=== PATIENT | male | born 1995 | race Caucasian/White ===

== ENCOUNTER 2017-12-16 22:09 | Inpatient (IN) | payer OTHER ==
[~2017-12-16] VITALS: Ht 175.3 cm; Wt 140.6 kg
[~2017-12-16 22:09] MED LIST: EXCEDRIN MIGRAI1 TAB PO; ZYPREXA2.5 M1 PO
--- NOTE | 2017-12-16 22:22 | ED PSYCHIATRIC COMPLAINT ---
See Addendum History of Present Illness General Chief Complaint: Psychiatric Related Complaint Stated Complaint: "I'M HOMELESS AND I FEEL LIKE HARMING MYSELF" +SI Source: patient, old records Exam Limitations: no limitations Vital Signs & Intake/Output Vital Signs & Intake/Output Vital Signs Date Time Temp Pulse Resp B/P B/P Pulse O2 O2 Flow FiO2 Mean Ox Delivery Rate 12/17 0841 97.1 67 16 129/77 96 12/17 0450 98.1 96 18 132/76 98 Room Air 12/17 0315 98.2 92 16 136/78 97 Room Air 12/16 2211 97.9 108 20 149/86 97 Room Air ED Intake and Output 12/17 0000 12/16 1200 Intake Total 0 Output Total Balance 0 Intake, Oral 0 Patient 310 lb Weight Weight Reported by Patient Measurement Method Reconcile Medications Acetaminophen/Aspirin/Caffei (Excedrin Migraine 250 MG-250 MG-65 MG) 1 TAB TAB 1 TAB PO PRN MIGRAINES (Reported) Olanzapine (Zyprexa) 2.5 MG TABLET 1 TAB PO QPM MENTAL HEALTH (Reported) Triage Note: PT HERE WITH C/O THOUGHTS OF SELF HARM WITH A PLAN. PT REPORTS BEING RELEASED FROM REHAB AND GOING HOME TO FIND OUT THAT HE IS HOMELESS. PT REPORTS FEELING HOPLESS. PT REPORTS HX OF DRINKING ALCOHOL AND SMOKING MARIJUANA. Triage Nurses Notes Reviewed? yes Onset: Gradual Duration: week(s):, constant, getting worse Timing: recent history Severity: moderate, severe Severity Numbers: 10 Associated Symptoms: suicidal ideation HPI: 22 year old male history of anxiety depression previous suicide attempts presents to ER for evaluation stating he feels hopeless worsening depression and thoughts of wanting to harm himself by cutting his wrists. Patient states that he's been feeling worse over the past few weeks. He recently came back here from [place]. [place] and has been on current regimen of medications for the past month however states it is not helping. He does report marijuana and alcohol use. No alcohol today. He denies any other drug use. No HI (Jim FLOOD,Cricket) Allergies Coded Allergies: cefazolin (RASH 12/17/17) (Kingston Oneal DO) Past History Travel History Traveled to [place] past 21 day No Medical History Any Pertinent Medical History? 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 FATHER FH: diabetes mellitus Relation not specified for: FHx: skin cancer Hx Contributory? No (Cricket Cruz) Review of Systems Review of Systems Constitutional: Reports: see HPI. Comments Review of systems: See HPI, All other systems negative. Constitutional, no chills no fever HEENT: no sore throat no congestion Cardiovascular: No chest pain Skin: no rashes, no change in skin Respiratory: No dyspnea no cough GI: No nausea no vomiting, Muscle skeletal: No joint pain, no back pain Neurologic: , no headache Psych: stress depression,. Heme/endocrine: No bruising (Cricket Cruz) Physical Exam Physical Exam General Appearance: well developed/nourished, alert, awake Neurological/Psychiatric: awake Comments: Well-developed well-nourished person in no acute distress HEENT: Normal EENT exam; PERRL, EOMI, HEAD is atraumatic. moist mucous membranes. Neck: Supple, normal range of motion Back: Full range of motion Cardiovascular: Regular rate and rhythms no murmur Respiratory: No respiratory distress. Patient speaking in full complete sentences. Breath sounds clear to auscultation bilaterally: NO W/R/R Extremity: No edema, full range of motion of extremities Neuro: Alert oriented x3, motor sensory normal, cranial nerves II through XII grossly intact. There were no obvious focal neurologic abnormalities. Skin: No appreciable rash on exposed skin, skin is warm and dry. Psych: Mood and affect is normal, memory and judgment is normal. SAD PERSONS SAD PERSONS Response Value Male Sex? yes 1 Depression/Hopelessness? yes 2 Previous Attempts/Psych Care yes 1 Excessive Ethanol/Drug Use? yes 1 Rational Thinking Loss? yes 2 Single//? yes 1 Organized/Serious Attempt yes 2 Stated Future Intent? yes 2 Total 12 SAD PERSONS Done? yes (Jim FLOOD,Cricket) Progress Differential Diagnosis: electrolyte abnormality, DEPRESSION, ANXIETY Plan of Care: Orders Procedure Date/time Status Regular Diet 12/17 L Active Regular Diet 12/17 B Complete ED Holding Orders 12/17 1100 Active Admit to inpatient 12/17 1100 Active Code Status 12/17 1100 Active Continuous Observation Monitor 12/16 2214 Active URINE DRUG SCREEN FOR ER ONLY 12/16 2214 Complete ETHANOL 12/16 2214 Complete COMPREHENSIVE METABOLIC PANEL 12/16 2214 Complete CBC WITHOUT DIFFERENTIAL 12/16 2214 Complete ED CRISIS PSYCH CONSULT 12/16 2214 Active Current Medications Sig/Josiah Start time Last Medication Dose Stop Time Status Admin Aripiprazole 10 MG DAILY 12/17 0900 UNVr 12/17 (Abilify) 0920 Buspirone HCl 15 MG DAILY 12/17 0900 UNVr 12/17 (Buspar) 0920 Hydroxyzine HCl 25 MG DAILY 12/17 0900 UNVr 12/17 (Atarax) 0920 Sertraline HCl 100 MG DAILY 12/17 0900 UNVr 12/17 (Zoloft) 0920 Laboratory Tests 12/17/17 0612: Urine Opiates Screen < 100, Methadone Screen < 40, Barbiturate Screen < 60, Ur Phencyclidine Scrn < 6.00, Amphetamines Screen < 100, U Benzodiazepines Scrn < 85, Urine Cocaine Screen < 50, Urine Cannabis Screen > 80.00 H 12/16/17 2242: Anion Gap 18 H, Estimated GFR > 60, BUN/Creatinine Ratio 12.2, Glucose 97, Calcium 9.9, Total Bilirubin 0.6, AST 28, ALT 62, Alkaline Phosphatase 48, Total Protein 7.7, Albumin 5.0, Globulin 2.7, Albumin/Globulin Ratio 1.9, CBC w Diff NO MAN DIFF REQ, RBC 5.70, MCV 81.3, MCH 27.3, MCHC 33.5, RDW 13.3, MPV 6.4 L, Gran % 71.7, Lymphocytes % 19.9 L, Monocytes % 7.3, Eosinophils % 0.8, Basophils % 0.3, Absolute Granulocytes 7.7 H, Absolute Lymphocytes 2.1, Absolute Monocytes 0.8 H, Absolute Eosinophils 0.1, Absolute Basophils 0, Serum Alcohol < 10.0 LABS ordered, ptcalm and cooperative at this time 100AM case d/w and signed out to dr mei pending crisis eval in am Hand-Off Endorsed To: Jens Mei MD Endorsed Time: 0100 Pending: consult (crisis) (Cricket Cruz) Hand-Off Endorsed To: Kingston Oneal DO (Lalita MCGRAW,Jens Meraz) Comments: I assumed care of this patient at the time of shift change while awaiting crisis evaluation. The crisis team saw the patient and has recommended an inpatient level of care. Hospitalized to their service for further psychiatric workup. (Kingston Oneal DO) Departure Departure Disposition: STILL A PATIENT Condition: Stable Clinical Impression Primary Impression: Suicidal ideation Secondary Impressions: Depression Referrals: Patient Has No Primary Care Dr (PCP/Family) Departure Forms: Customer Survey General Discharge Information (Cricket Cruz) PA/WATER FILTRATION TECHNICIAN Co-Sign Statement Statement: ED Attending supervision documentation- [] I saw and evaluated the patient. I have also reviewed all the pertinent lab results and diagnostic results. I agree with the findings and the plan of care as documented in the PA's/WATER FILTRATION TECHNICIAN's documentation. [x] I have reviewed the ED Record and agree with the PA's/WATER FILTRATION TECHNICIAN's documentation. [] Additions or exceptions (if any) to the PAs/WATER FILTRATION TECHNICIAN's note and plan are summarized below: [] (Lalita MCGRAW,Jens Meraz)
[2017-12-16 22:56] LABS: ABSOLUTE BASOPHIL COUNT 0 /CUMM (0.0-0.2); ABSOLUTE EOSINOPHIL COUNT 0.1 /CUMM (0.0-0.7); ABSOLUTE GRANULOCYTE CT 7.7 /CUMM (1.4-6.5); ABSOLUTE LYMPH COUNT 2.1 /CUMM (1.2-3.4); ABSOLUTE MONOCYTE COUNT 0.8 /CUMM (0.10-0.60); BASOPHIL % 0.3 % (0.0-2.0); EOSINOPHIL % 0.8 % (0-5); GRANULOCYTE % 71.7 % (42.2-75.2); HEMATOCRIT 46.4 % (42-52); MEAN CORPUSCULAR HGB 27.3 PG (27.0-31.0); MEAN CORPUSCULAR HGB CONC 33.5 G/DL (33.0-37.0); MEAN CORPUSCULAR VOLUME 81.3 FL (80.0-94.0); MEAN PLATELET VOLUME 6.4 FL (7.4-10.4); PLATELET COUNT 301 /CUMM (130-400); RBC DISTRIBUTION WIDTH 13.3 % (11.5-14.5); WHITE BLOOD CELL COUNT 10.8 /CUMM (4.8-10.8)
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
[2017-12-18 13:15] VITALS: BP 122/59
[2017-12-18] MEDS ORDERED: ABILIFY10 M1 PO (13:38)
[2017-12-18] MEDS ORDERED: ZOLOFT100 M1 PO (13:39)
[2017-12-18] MEDS ORDERED: BUSPIRONE HCL15 M1 PO (13:40)
[2017-12-18] MEDS ORDERED: VISTARIL25 M1 PO (13:41)
[2017-12-18] MEDS ORDERED: VISTARIL50 M1 PO (13:43)
[2017-12-18 15:41] VITALS: BP 125/67
--- NOTE | 2017-12-18 15:54 | History & Physical ---
General Information and HPI MD Statement: I have seen and personally examined PATRICIA FLORES and documented this H&P. The patient is a 22 year old M who presented with a patient stated chief complaint of [depression and suicidal ideation]. Source of Information: patient, old records Exam Limitations: no limitations History of Present Illness: 22 yr male with pmh of depression and suicidal attempts and ideation who is currently homeless and lives in [place]. Pt was recently at mental rehab for the last 2 months in [place] and [facility]. Pt denies any medical issues like htn, hld , dm . Gives h/o asthma as a kid and last episode was 12-13 years ago. Pt does smoke cigs- 1 pack per week. Alcohol history in past- has been sober for a week. Allergies/Medications Allergies: Coded Allergies: cefazolin (RASH 12/17/17) Home Med list Acetaminophen/Aspirin/Caffei (Excedrin Migraine 250 MG-250 MG-65 MG) 1 TAB TAB 1 TAB PO PRN MIGRAINES (Reported) Aripiprazole (Abilify) 10 MG TABLET 10 MG PO DAILY MENTAL HEALTH (Reported) Buspirone HCl 15 MG TABLET 15 MG PO TID ANXIETY (Reported) Hydroxyzine Pamoate (Vistaril) 25 MG CAPSULE 25 MG PO DAILY ANXIETY (Reported ) Hydroxyzine Pamoate (Vistaril) 50 MG CAPSULE 50 MG PO QPM SLEEP (Reported) Sertraline HCl (Zoloft) 100 MG TABLET 100 MG PO DAILY DEPRESSION (Reported) Past History Travel History Traveled to [place] past 21 day No Medical History Neurological: CONCUSSION EENT: NONE Cardiovascular: NONE Respiratory: asthma Gastrointestinal: NONE Hepatic: NONE Renal: NONE Musculoskeletal: NONE Psychiatric: anxiety, depression, schizophrenia, substance abuse, PTSD Endocrine: NONE Blood Disorders: NONE Cancer(s): NONE CHEF FRENCH/Reproductive: NONE History of MRSA: No History of VRE: No History of CDIFF: No Isolation History: Standard Surgical History Surgical History: appendectomy Past Family/Social History Family History Relations & Conditions if any MOTHER, , Age 40-50; Cause: Cardiac arrest due to underlying cardiac condition. FATHER FH: diabetes mellitus Relation not specified for: FHx: skin cancer Psychosocial History Where do you live? Home Who Do You Live With? parent ETOH Use: alcoholic Illicit Drug Use: marijuana Review of Systems Review of Systems Constitutional: Denies: chills, fever. EENTM: Denies: eye pain. Cardiovascular: Denies: chest pain, palpitations. Respiratory: Denies: cough, short of breath. GI: Denies: abdominal pain. Musculoskeletal: Denies: joint pain. Neurological/Psychological: Reports: depressed. Exam & Diagnostic Data Last 24 Hrs of Vital Signs/I&O Vital Signs Date Time Temp Pulse Resp B/P B/P Pulse O2 O2 Flow FiO2 Mean Ox Delivery Rate 12/18 1541 73 125/67 12/18 1315 97.3 73 122/59 12/18 1141 98.2 85 16 125/76 98 Room Air 12/18 0909 97.6 72 18 125/71 95 Room Air 12/18 0633 98.2 70 20 120/62 98 12/18 0110 96.4 64 18 138/85 97 Room Air 12/17 2159 97.7 62 18 141/76 97 Room Air 12/17 2028 94 18 124/74 96 Room Air 12/17 1741 88 18 137/68 100 Room Air Intake & Output 12/18 1600 12/18 0800 12/18 0000 Intake Total Output Total Balance Patient 140.614 kg Weight Physical Exam General Appearance Alert, Oriented X3, Cooperative Skin cuts on both forearms that are old and healed HEENT Atraumatic Cardiovascular Regular Rate, Normal S1, Normal S2 Lungs Clear to Auscultation, Normal Air Movement Abdomen Normal Bowel Sounds, Soft, No Tenderness Neurological Exam Findings: Normal Gait, Normal Speech, Cranial Nerves 3-12 NL Cranial Nerves II through XII: intact Assessment/Plan Assessment: Depression with suicidal ideation - management plan as per psychiatry. Smoking cessation- start on nicotine patch 7mg/24 hrs. dw pt the care plan. As Ranked By This Provider Problem List: 1. Depression 2. Schizoaffective disorder 3. Deliberate self-cutting 4. Suicidal ideation Miscellaneous Miscellaneous Documentation Attending Case Discussed With: Hipolito MCGRAW,Dani Primary Care Physician: Patient Has No Primary Care Dr Patient sees these Specialists none Level of Patient Care: [facility]
[2017-12-18 19:53] VITALS: BP 125/66
[2017-12-19 08:58] VITALS: BP 118/70
[2017-12-19 12:18] VITALS: BP 118/72
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
[2017-12-19 16:07] VITALS: BP 134/91
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
--- NOTE | 2017-12-19 18:25 | SOCIAL WORKER PROG NOTE PSYCH ---
Social Work Progress Note Progress Note This television writer met with patient. He stated that he came to the hospital due to increased depression and SI with a plan to overdose on medications and "slice up my arms." Michael stated that he was recently kicked out of his father's house and is currently homeless. Patient reported passive SI currently, and feels safe on this unit. Patient was agreeable to both a [facility] referral as well as a [facility] referral. He stated that he is not interested at rehab at this time, but would like to learn about retreat. He will call Cora Lyon tomorrow. Patient was also agreeable to a crisis and respite referral. He was agreeable to a family meeting with his step mother, Chastity Goff ([phone]). Patient denied HI/AH/VH, feels safe on this unit and would immediately inform staff if feeling unsafe or has other concerns.
[2017-12-19 20:07] VITALS: BP 129/81
[2017-12-20 07:55] VITALS: BP 118/67
[2017-12-20 12:10] VITALS: BP 128/67
--- NOTE | 2017-12-20 13:17 | CP SOUTH PROGRESS NOTE PSYCH ---
Psych (Inpt) Progress Note Progress Note Vital Signs: Date Time Temp Pulse B/P 12/20 1210 75 128/67 12/20 0755 96.4 69 118/67 12/19 2006 98.5 88 129/81 Mental Status Examination Patient was steady on his feet, Calm and cooperative, Normal psychomotor activity No abnormal behaviors. Normal speech, not pressured, not slurred. Good range of affect, he reported feelings of depression, reported on and off thoughts of suicide, he denied thoughts of homicide, he denied hallucinations, denied feeling paranoid, there were no delusions during the interview. There were no difficulties with thought organization. Good insight, good judgment, he was alert and oriented to time, place, and person. There was no evidence of cognitive disorders Assessment: Abdi is a 22-year-old single white male who presented with depressive symptoms and thoughts of suicide. He has significant history of substance use disorder including recent rehabilitations in [place] and [place]. Diagnosis(es): F32.9 Unspecified Depressive Disorder F12.20 Cannabis Use Disorder, Moderate History of concussion. History of asthma. Treatment Plan: Reduce Aripiprazole to 5 MG DAILY Increase Sertraline to 150 mg daily Gabapentin 600 MG Q6-PRN PRN Gabapentin 900 MG AT BEDTIME NEED.. Hydroxyzine HCl 75 MG 2100 Lorazepam 2 MG Q6P PRN F32.9 Unspecified Depressive Disorder F12.20 Cannabis Use Disorder, Moderate Migraines. History of concussion. History of asthma. - Initial Tx Plan for Active Psych & Medical Conditions Treatment Plan: Inpatient psychiatric care with safety checks every 15 minutes
[2017-12-20 15:51] VITALS: BP 130/67
--- NOTE | 2017-12-20 18:14 | SOCIAL WORKER PROG NOTE PSYCH ---
Social Work Progress Note Progress Note This policy writer sales met with patient. He stated that he is working with the psychiatrist to adjust medications and that the Abilify is being decreased while the Zoloft is being increased. Patient discussed treatment history, stating that he completed a 31 day program in [place] ([facility]) and, prior to that, [facility] in [place] (rehab, 31 days). He was unsure as to why his father informed him that he could no longer stay with him. He is interested in continuing with treatment to support his recovery. This policy writer sales spoke with him about [facility] in [place]. He stated that it sounds similar to the [place] program he attended and would like a referral. He stated that he does not have income and plans on getting food stamps, which he had in [place]. Patient was also agreeable to a family meeting with his step mother (Chastity Goff) and a vm was left for her. Patient would like to wait on the Crisis and Respite referral for now, however, is interested in a [facility] referral. This policy writer sales spoke with Marielle at [facility] and an intake has been scheduled for at 9:30am with Andres ([phone]). Patient was informed an accepted.
[2017-12-20 20:20] VITALS: BP 138/82
[2017-12-21 07:43] VITALS: BP 126/60
--- NOTE | 2017-12-21 08:21 | CP SOUTH PROGRESS NOTE PSYCH ---
Psych (Inpt) Progress Note Progress Note Treatment team discussed Pt's progress, treatment plan, and aftercare plans. Team included: LCSWs, RNs, Group & Activity Therapy staff, and psychiatrist. Vital Signs: Date Time Temp Pulse B/P 12/21 0743 96.5 69 126/60 Mental Status Examination: Abdi was alert and oriented to time, place, and person. He was calm and cooperative, he showed normal psychomotor activity, there were no abnormal behaviors. His speech was normal/not pressured, not slurred. He showed a good range of affect, he reported that he still has feelings of depression, he reported that he still has on and off thoughts of suicide, he denied thoughts of violence or homicide, he denied hallucinations, denied feeling paranoid, there were no delusions during the interview. He was coherent/there were no difficulties with thought organization. There was no evidence of cognitive or memory deficits. Assessment: Abdi is a 22-year-old Single white male who was admitted to the inpatient psychiatric unit at [facility] on 12/18/2017 for voicing thoughts of suicide. He has significant history of substance use disorder including recent rehabilitations in [place] and [place]. Abdi is showing very slow and gradual improvement. He continues to have on and off thoughts of suicide. The patient patient's unstable housing/ homelessness may be a driving factor be behind some of the symptoms. Diagnoses: F32.9: Unspecified Depressive Disorder F12.20: Cannabis Use Disorder, Moderate History of concussion. Treatment Plan Update: Continue same medications Aripiprazole 5 MG DAILY Sertraline 150 mg daily Gabapentin 600 MG Q6-PRN PRN Gabapentin 900 MG AT BEDTIME NEED Hydroxyzine HCl 75 MG 2100 Hydroxyzine HCl 75 MG 2100 Lorazepam 2 MG Q6P PRN
[2017-12-21 12:09] VITALS: BP 118/55
--- NOTE | 2017-12-21 12:51 | SOCIAL WORKER PROG NOTE PSYCH ---
Social Work Progress Note Progress Note Faxed clinical to [facility]. Fax confirmation and clinical on Lida Edmonds LCSW desk. She will follow-up with Admissions at [facility].
[2017-12-21 15:53] VITALS: BP 125/66
--- NOTE | 2017-12-21 16:43 | SOCIAL WORKER PROG NOTE PSYCH ---
Social Work Progress Note Progress Note Scrap Piler Tax Manager, Cora Lyon wrote the below note: Data: Patient has been to multiple facilities for mental health treatment. Patient completed a 30 day inpatient substance abuse treatment followed by a 31 day stay at a lower level care [place] just recently. Patient states he returned home to [place] and moved back in with his father and step-mom and his father told him he had to stay somewhere else. Patient states he didnt see it coming and ended up being at a friends house for 2 weeks. Patient is here at [facility] because he was having thoughts of suicide and had a plan, but knew that wasnt what he wanted to do, so instead he sought out help. Patient states his anxiety is a level 9 on a scale of 1 to 10 (10 being the worst) and his depression is on a level 7. Patient is very apprehensive about visit today with father and step-mom. Patient states he feels his father just doesnt know what to do for him anymore and that he may feel somewhat responsible for patients mental health due to childhood upbringing (patient did not go into detail). Assessment: Patient is aware of mental health and wants to do what he can to help himself get better. Patient is also in recovery from substance use and has not relapsed in this respect. Patient is in the Active Stage of Change. Plan: Eva Joel is working on getting patient an assessment to transfer to [facility] in [place], [place]
--- NOTE | 2017-12-21 17:38 | SOCIAL WORKER PROG NOTE PSYCH ---
Social Work Progress Note Progress Note This sports book writer met with patient. He discussed anxiety due to plans for his father and step mother to visit him jaylen, per his invite. Patient identified strategies to manage his anxiety. He will also ask his stepmother about her interest in a family meeting and this sports book writer did not receive a call back from her. Patient reported ongoing SI and thoughts to self harm. He stated that he uses a stress ball and talking to staff to manage these thoughts and has not engaged in any self harm while on this unit. He denied HI/AH/VH. Patient discussed feeling hopeful about the intake phone call on Sunday12/25/17 with Billy Long.
[2017-12-21 20:05] VITALS: BP 124/74
[2017-12-22 07:49] VITALS: BP 118/76
[2017-12-22 12:09] VITALS: BP 135/65
[2017-12-22 15:44] VITALS: BP 138/62
--- NOTE | 2017-12-22 19:17 | CP SOUTH PROGRESS NOTE PSYCH ---
Psych (Inpt) Progress Note Progress Note Include the following elements, when applicable: Involvement in the active treatment of the patient with behavioral observations of the patient and the patient's response to the treatment. Review of the ongoing treatment process in the context of the treatment plan. Indication of how multi-disciplinary staff members are carrying out the treatment plan. Plans for future interventions and recommendations for revision of the treatment plan. Liaison with other physicians/providers. Progress Note: The patient was seen 1-1 and discussed with the nursing staff. He has been compliant with medication and activities on the unit. We reviewed the psychiatric diagnosis, medication for treatment, with risk/ benefits/side effects of each and the rationale for prescribing them. According to the nursing report he has slept through the night and ate all his meals He appears anxious and fidgety. He is complaining of intense anxiety interfering with sleep and the activities of daily living. The patient denies suicidal/homicidal ideation, auditory/visual hallucinations or side effects from medication. vistaril 25 mg every morningWas added at his request, he stated that he used to take it to be able to "start my day". We will continue present medication regimen, observation, symptom monitoring. The patient will be followed up daily by the unit psychiatrist.Allergies cefazolin (Coded, RASH, 12/17/17) Laboratory Tests 12/17/17 0612: Urine Opiates Screen < 100, Methadone Screen < 40, Barbiturate Screen < 60, Ur Phencyclidine Scrn < 6.00, Amphetamines Screen < 100, U Benzodiazepines Scrn < 85, Urine Cocaine Screen < 50, Urine Cannabis Screen > 80.00 H 12/16/17 2242: Anion Gap 18 H, Estimated GFR > 60, BUN/Creatinine Ratio 12.2, Glucose 97, Calcium 9.9, Total Bilirubin 0.6, AST 28, ALT 62, Alkaline Phosphatase 48, Total Protein 7.7, Albumin 5.0, Globulin 2.7, Albumin/Globulin Ratio 1.9, CBC w Diff NO MAN DIFF REQ, RBC 5.70, MCV 81.3, MCH 27.3, MCHC 33.5, RDW 13.3, MPV 6.4 L, Gran % 71.7, Lymphocytes % 19.9 L, Monocytes % 7.3, Eosinophils % 0.8, Basophils % 0.3, Absolute Granulocytes 7.7 H, Absolute Lymphocytes 2.1, Absolute Monocytes 0.8 H, Absolute Eosinophils 0.1, Absolute Basophils 0, Serum Alcohol < 10.0
[2017-12-22 19:44] VITALS: BP 145/90
[2017-12-23 07:54] VITALS: BP 107/58
[2017-12-23 12:29] VITALS: BP 134/71
--- NOTE | 2017-12-23 13:02 | CP SOUTH PROGRESS NOTE PSYCH ---
Psych (Inpt) Progress Note Progress Note Include the following elements, when applicable: Involvement in the active treatment of the patient with behavioral observations of the patient and the patient's response to the treatment. Review of the ongoing treatment process in the context of the treatment plan. Indication of how multi-disciplinary staff members are carrying out the treatment plan. Plans for future interventions and recommendations for revision of the treatment plan. Liaison with other physicians/providers. Progress Note: The patient was seen one-to-one and discussed with the nursing staff. He is 22 years old single male with depression and suicidal ideation reporting improved mood and reduced anxiety with the adding hydroxyzine to his medication regimen. The patient denies suicidal/homicidal ideation, auditory/visual hallucinations or side effects from medication. He is compliant with medication. Sleeps and eats well. Current Medications Sig/Josiah Start time Last Medication Dose Route Stop Time Status Admin Acetaminophen 650 MG Q4P PRN 12/18 1245 AC PO Al Hydroxide/Mg 30 ML Q4-6 PRN PRN 12/18 1245 AC Hydroxide PO Aripiprazole 5 MG DAILY 12/21 09 AC 12/24 PO 0835 Benztropine Mesylate 1 MG .STK-MED ONE 12/23 2142 DC PO 12/24 2143 Benztropine Mesylate 1 MG Q6P PRN 12/18 1730 AC 12/23 PO 214 Buspirone HCl 30 MG BID 12/19 PO 0835 Clonazepam 1 MG Q12 PRN 12/24 1245 AC PO 12/31 1244 Clonazepam 1 MG ONCE ONE 12/24 1245 DC 12/24 PO 12/24 1246 1301 Gabapentin 600 MG Q6-PRN PRN 12/18 1245 AC 12/19 PO 1836 Gabapentin 900 MG AT BEDTIME NEED.. 12/18 1245 AC PO Haloperidol 5 MG .STK-MED ONE 12/23 214 DC PO 12/23 214 Haloperidol 5 MG Q6P PRN 12/18 1730 AC 12/23 PO 214 Hydroxyzine HCl 25 MG DAILY 12/23 09 AC 12/24 PO 0835 Hydroxyzine HCl 75 MG 2100 12/19 2100 12/23 PO 2144 Lorazepam 2 MG Q6P PRN 12/18 1730 DC PO Magnesium Hydroxide 30 ML AT BEDTIME PRN 12/18 1245 AC PO Nicotine 2 MG Q2 HRS NEEDED PRN 12/20 1345 AC 12/24 PO 1741 Nicotine 7 MG DAILY 12/18 1552 AC 12/20 TOP 0810 Sertraline HCl 150 MG DAILY 12/21 0900 AC 12/24 PO 0835 Vital Signs Date Time Temp Pulse Resp B/P B/P Pulse O2 O2 Flow FiO2 Mean Ox Delivery Rate 12/24 1620 87 111/58 12/24 1205 73 103/50 12/24 0802 97.6 64 93/58 12/23 1957 99.1 97 140/89 He continues to have depression and passive suicidal ideation but reports that "the suicidal thoughts, are not as" frequent" He is compliant with medication. The patient has good insight and judgment, and is motivated for treatment. Wants [facility] be discharged to [facility] more effectively to prevent inpatient acute level of care. We will continue present medication regimen, observation, symptom monitoring. The patient will be followed up daily by the unit psychiatrist.
[2017-12-23 15:39] VITALS: BP 132/65
[2017-12-23 19:57] VITALS: BP 140/89
[2017-12-24 08:02] VITALS: BP 93/58
--- NOTE | 2017-12-24 08:28 | CP SOUTH PROGRESS NOTE PSYCH ---
Psych (Inpt) Progress Note Progress Note The right direction is better today with the 19th (as 5 mg 9 seconds is and 20 5 in the morning helps a little vaginal yes, or having any more uses as her medication help so she will any changes at once with a visitor good effect is both he starts with Include the following elements, when applicable: Involvement in the active treatment of the patient with behavioral observations of the patient and the patient's response to the treatment. Review of the ongoing treatment process in the context of the treatment plan. Indication of how multi-disciplinary staff members are carrying out the treatment plan. Plans for future interventions and recommendations for revision of the treatment plan. Liaison with other physicians/providers. Progress Note: Subjective: Patient states he's been having continued high anxiety although the Vistaril helped this morning. Patient continues to have SI ruminations with multiple plans. Patient continues to have thoughts to cut however feels that he can push that out of his head and distract himself. Patient denies AVH/HI. Psychoeducation and supportive therapy provided. Patient in agreement with changing Ativan when necessary to Klonopin when necessary since it is longer acting, risks and benefits discussed including addiction potential. Patient denies side effects to medication, pain, any other physical complaints. Patient eating well patient endorses difficulty sleeping, broken with nightmares including "cutting dreams." Flashbacks and reexperiencing past traumas, discussed alpha-2 iliana for nightmare treatment. Objective: Patient visible on the unit, interacting with peers. Patient was adherent with medications and in behavioral control. Current Medications Sig/Josiah Start time Last Medication Dose Route Stop Time Status Admin Acetaminophen 650 MG Q4P PRN 12/18 1245 AC PO Al Hydroxide/Mg 30 ML Q4-6 PRN PRN 12/18 1245 AC Hydroxide PO Aripiprazole 5 MG DAILY 12/21 0900 AC 12/23 PO 0758 Benztropine Mesylate 1 MG .STK-MED ONE 12/23 2142 DC PO 12/24 2143 Benztropine Mesylate 1 MG Q6P PRN 12/18 1730 AC 12/23 PO 2142 Buspirone HCl 30 MG BID 12/19 2100 AC 12/23 PO 214 Gabapentin 600 MG Q6-PRN PRN 12/18 1245 AC 12/19 PO 183 Gabapentin 900 MG AT BEDTIME NEED.. 12/18 1245 AC PO Haloperidol 5 MG .STK-MED ONE 12/23 214 DC PO 12/24 2143 Haloperidol 5 MG Q6P PRN 12/18 1730 AC 12/23 PO 214 Hydroxyzine HCl 25 MG DAILY 12/23 0900 AC 12/23 PO 0758 Hydroxyzine HCl 75 MG 2100 12/19 2100 AC 12/23 PO 214 Lorazepam 2 MG Q6P PRN 12/18 1730 AC PO Magnesium Hydroxide 30 ML AT BEDTIME PRN 12/18 1245 AC PO Nicotine 2 MG Q2 HRS NEEDED PRN 12/20 1345 AC 12/23 PO 1958 Nicotine 7 MG DAILY 12/18 1552 AC 12/20 TOP 0810 Sertraline HCl 150 MG DAILY 12/21 0900 AC 12/23 PO 0758 Vital Signs Date Time Temp Pulse Resp B/P B/P Pulse O2 O2 Flow FiO2 Mean Ox Delivery Rate 12/24 0802 97.6 64 93/58 12/23 1957 99.1 97 140/89 12/23 1539 89 132/65 12/23 1229 77 134/71 MSE: General: Patient alert and oriented, good hygiene, good eye contact, conversational, anxious and flushed easily. Speech: Moderate rate and volume, normal prosody, fluent. Motor: No tics, tremors, stereotypy or other abnormal movements apparent. Mood: "Not that great." Affect: anxious, mildly constricted but brightens appropriately at times, mood congruent, non-labile, well related. Thought process: Logical, linear and goal-directed. Thought content: No SI/HI/AVH/SIB. No apparent grandiosity, delusions, paranoia , obsessions, but continued SI ruminations. Cognition: No apparent deficits in memory, attention, concentration. Insight: Fair. Judgment: Fair. A&P: 22-year-old single white male presenting with depression and SI with a history of substance use disorder with two rehabilitation admissions recently reportedly improved over weekend with Vistaril 25 mg in the morning added per patient request, which she feels is helpful. Medically complicated by concussion history and asthma. Patient continues to endorse SI with plan, thoughts of cutting and high anxiety, is able to make safety promise on unit and able to ask for help when needed. -Maintain safety, every 15 minute checks -Changing Ativan when necessary to Klonopin when necessary -Patient may benefit from alpha-2 iliana for PTSD nightmares, deferring today due to low BP, monitor. -Continue other medications as above -Continue plan
[2017-12-24 12:05] VITALS: BP 103/50
[2017-12-24 16:20] VITALS: BP 111/58
[2017-12-24 20:00] VITALS: BP 135/81
[2017-12-25 07:35] VITALS: BP 121/77
--- NOTE | 2017-12-25 11:45 | CP SOUTH PROGRESS NOTE PSYCH ---
Psych (Inpt) Progress Note Progress Note I reviewed the notes of Dr. Ghazala Jefferson MD for 12/[address] Sonia Cardona MD, for 12/24/17 Treatment team discussed Pt's progress, treatment plan, and aftercare plans. Team included: LCSWs, RNs, Group/Activity/Art Therapy staff, and psychiatrist. Mental Status Examination: Abdi was alert and oriented to time, place, and person. He was calm and cooperative, he showed normal psychomotor activity, there were no abnormal behaviors. His speech was normal/not pressured, not slurred. He showed a good range of affect, he reported that he still has feelings of depression, Abdi denied thoughts of suicide, he denied thoughts of violence or homicide, he denied hallucinations, denied feeling paranoid, there were no delusions during the interview. He was coherent/there were no difficulties with thought organization. Assessment: Abdi is a 22-year-old Single White male who was admitted to the inpatient psychiatric unit at [facility] on 12/18/2017 for voicing thoughts of suicide. Abdi is showing slow and gradual improvement. He was accepted into [facility] in [place], [place] Diagnoses: F32.9: Unspecified Depressive Disorder F12.20: Cannabis Use Disorder, Moderate History of concussion. Treatment Plan Update: Continue Aripiprazole 5 MG DAILY Sertraline 150 mg daily Gabapentin 600 MG Q6-PRN PRN Gabapentin 900 MG AT BEDTIME NEED Hydroxyzine HCl 75 MG 2100 Continue same medications Aripiprazole 5 MG DAILY Sertraline 150 mg daily Gabapentin 600 MG Q6-PRN PRN Gabapentin 900 MG AT BEDTIME NEED Hydroxyzine HCl 75 MG 2100
[2017-12-25 12:25] VITALS: BP 133/73
[2017-12-25 15:59] VITALS: BP 138/70
--- NOTE | 2017-12-25 17:59 | SOCIAL WORKER PROG NOTE PSYCH ---
Social Work Progress Note Progress Note Patient completed a phone screening with En at [facility] at 9:30am today. This development writer received a call from Marielle at [facility] later in the morning stating that he has been accepted, insurance will pay 100% of clinical and that they have all necessary records thus far. She confirmed that he will be able to utilize a scholarship in order to live at [facility]. Marielle stated that he would need to be able to pay for his own food. This development writer met with patient. He described his mood as "mellow" and denied SI/ HI/AH/VH. He identified being accepted to [facility] as a contributing factor to his progress/improvement with mood. Patient stated that he would contact his mother to discuss assistance with paying for food (which he later did and stated that she has agreed to assist with food costs). Patient stated that he plans to obtain food stamps. Patient stated that he had a good visit with his father this weekend. Patient was agreeable to going to [facility] tomorrow. Per Marielle, transportation will be provided and they plan to arrive at at 2pm. Pharmacy utilized is [facility] ([phone]). This development writer reviewed the 1-4 items on the W-10 with Marielle: 1. 19/02 contact: Dr. Mcmillan, 2. contact for studies pending at discharge: Dr. Mcmillan, 3. plan for follow up care: [facility] (Marielle was also informed of the IOP) 4. primary physician: Dr. Parham
[2017-12-25 19:51] VITALS: BP 120/74
[2017-12-26 07:45] VITALS: BP 134/71
--- NOTE | 2017-12-26 07:59 | CP SOUTH PROGRESS NOTE PSYCH ---
Psych (Inpt) Progress Note Progress Note Vital Signs Date Time Temp Pulse B/P B/P Pulse O2 FiO2 12/26 1216 92 122/76 12/26 0745 97.2 70 134/71 12/25 1951 98.5 92 120/74 Treatment team discussed Pt's progress, treatment plan, and aftercare plans. Team included: LCSWs, RNs, Group/Activity/Art Therapy staff, and psychiatrist. Mental Status Examination: Abdi seemed happy about being accepted by [email or web address], he denied wishing or thoughts of suicide, he denied thoughts of violence or homicide Abdi was alert and oriented to time, place, and person. He was calm and cooperative, he showed normal psychomotor activity, there were no abnormal behaviors. His speech was normal/not pressured, not slurred. He showed a good range of affect, he reported he denied hallucinations, denied feeling paranoid, there were no delusions during the interview. He was coherent/there were no difficulties with thought organization. Assessment: Abdi is a 22-year-old Single White male who was admitted to the inpatient psychiatric unit at [facility] on 12/18/2017 for voicing thoughts of suicide. Abdi is showing slow and gradual improvement. He was accepted into [email or web address] in [place], [place] Diagnoses: F32.9: Unspecified Depressive Disorder F12.20: Cannabis Use Disorder, Moderate History of concussion. Treatment Plan Update: D/C to [email or web address] in [place], [place]
[2017-12-26] MEDS ORDERED: SERTRALINE HCL50 MG PO (09:04)
[2017-12-26] MEDS ORDERED: VISTARIL25 M1 PO (09:04)
[2017-12-26] MEDS ORDERED: VISTARIL50 M1 PO (09:09)
[2017-12-26] MEDS ORDERED: GABAPENTIN300 M2 PO (09:12)
[2017-12-26] MEDS ORDERED: KLONOPIN1 M1 PO (09:12)
[2017-12-26] MEDS ORDERED: NICORELIEF2 MG PO (09:12)
[2017-12-26] MEDS ORDERED: ABILIFY5 M1 PO (10:04)
[2017-12-26] MEDS ORDERED: BUSPIRONE HCL30 M1 PO (10:04)
[2017-12-26 12:16] VITALS: BP 122/76
--- NOTE | 2017-12-26 17:57 | SOCIAL WORKER PROG NOTE PSYCH ---
Social Work Progress Note Progress Note This song writer met with patient. He described his mood as "a little anxious about going to [facility]" and reported overall improvement with mood. He denied SI/HI/ AH/VH and identified a safety plan in which he would immediately inform staff if feeling unsafe. He was also informed of and accepted the crisis numbers and warm line numbers. Per Marielle at [facility], patient will need to have access to funds for food. This was relayed to patient's step mother, Chastity, who contacted Marielle to pay for a [employer] gift card. Patient stated that Chastity is also assisting him in applying for food stamps. Chastity, patient's step mother, stated that she felt comfortable and hopeful about the discharge plan and does not have any safety concerns about the patient discharging today. Faxed Referral(s) Referred To: [facility] Documents sent: Health Summary Faxed to: [facility] Fax #: [phone] Faxed by: Randall Edmonds LCSW Date faxed: 12/26/17 Time Faxed: [phone]
== END 2017-12-26 14:50 | DRG 881 ==
LOC: ERH 22:09 → ERHI 12-18 11:41 → CP SOUTH 12-18 11:41 → ENTRNSPT 12-18 12:55 → EDTRNSPT 12-18 12:56 → EDTRNSPTSTS 12-18 12:56 → CP SOUTH 12-18 13:01 → CMPTRNSPT 12-18 13:09 → CP SOUTH 12-26 14:50
PROVIDERS: Physician Assistant Medical
DX: F32.9 Major depressive disorder, single episode, unspecified (principal); F12.90 Cannabis use, unspecified, uncomplicated
CPT/HCPCS: 80307; G0463; G0480; J0401; J3490